=== PATIENT | female | born 1960 | race Caucasian/White ===

== ENCOUNTER 2022-06-19 07:07 | Observation (INO) | payer MEDICAID, SELFPAY ==
[2022-06-19] VITALS (20 sets, daily range): BP systolic 124–168; BP diastolic 60–96; PULSE 90–110; RESP 14–22; TEMP 36.3–37.5; O2SAT 91–98; BMI 32.3
--- NOTE | 2022-06-19 07:11 | DI.RAD.S_ITS ---
PROCEDURE: XR CHEST 1V INDICATIONS: chest pain TECHNIQUE: One view of the chest was acquired. COMPARISON: [facility], CHEST 2 VIEW, 03/07/2012, 11:07. [facility], , CHEST 2 VIEW, 05/17/2011, 19:53. FINDINGS: Surgical changes and devices: None. Lungs and pleura: Mild right and minimal left basal opacities. No pleural effusions. No pneumothorax. The right mid lung suspected nodule is again seen. Mediastinum: Mediastinal contours appear normal. Heart size is normal. Bones and chest wall: No suspicious bony lesions. Overlying soft tissues appear unremarkable. IMPRESSION: Mild basal lung opacities could represent early airspace disease or atelectasis. Consider future imaging surveillance to assess for resolution. A right mid lung nodules again seen from 2011. Dictated by: Curt Centeno M.D. on 06/19/2022 at 7:45 Approved by: Curt Centeno M.D. on 06/19/2022 at 7:47
--- NOTE | 2022-06-19 07:14 | ED_ITS ---
HPI - Chest Pain General Chief Complaint: Chest Pain Stated Complaint: Chest Pain Time Seen by Provider: 06/19/22 07:17 History of Present Illness HPI narrative: Patient brought in by EMS from home. Patient is a smoker. Complains of substernal chest tightness achiness 03/03 at 4:00 a.m. this morning. Radiated to her neck. No limb discomfort no syncope no diaphoresis. Feels short of breath. Blood pressure was elevated by EMS measurement. Patient took 650 of aspirin prior to arrival here. EMS gave 3 doses of sublingual nitroglycerin and brought pain down to out of 10. Blood pressure has improved. No numbness tingling or weakness. No recent illness. No known injury. No unusual stress to the limbs or chest in the past week. No cough cold congestion fever chills. Patient is adopted, unknown family cardiac history other than brother with no heart history. Patient has never had stress test before. Patient denies any history of heart attack strokes or diabetes or high blood pressure. Related Data Home Medications Medication Instructions Recorded Confirmed melatonin 12 mg tablet 12 mg PO BEDTIME 06/19/22 06/19/22 Previous Rx's Medication Instructions Recorded aspirin 81 mg tablet,delayed 81 mg PO DAILY #90 tabs 06/20/22 release atorvastatin 20 mg tablet (Lipitor) 20 mg PO BEDTIME #90 tabs 06/20/22 pantoprazole 40 mg tablet,delayed 40 mg PO DAILY PRN Acid Reflux #30 06/20/22 release tabs Allergies Allergy/AdvReac Type Severity Reaction Status Date / Time ciprofloxacin [From CIPRO] Allergy Severe ANAPHYLAXIS Verified 06/20/22 09:06 Sulfa (Sulfonamide Allergy Severe ANAPHYLAXIS Verified 06/20/22 09:06 Antibiotics) [SULFA (SULFONAMIDE ANTIBIOTICS)] nitrofurantoin Allergy Mild Verified 06/20/22 09:06 [NITROFURANTOIN] Review of Systems Review of Systems Narrative: GENERAL: negative chills, fatigue, malaise, fever, sweats. HEENT: negative sinus pain, ear pain, sore throat RESPIRATORY: Positive dyspnea, negative cough CARDIOVASCULAR: Positive chest pain, negative palpitations GASTROINTESTINAL: negative nausea, vomiting, abdominal pain : negative dysuria, frequency, hematuria MUSCULOSKELETAL: negative muscle or bony pain SKIN: negative rash, skin lesions NEUROLOGIC: negative weakness, numbness ROS Unobtainable: All systems reviewed & are unremarkable except as noted in HPI and below Patient History Family History (Updated 06/19/22 @ 17:30 by Arnoldo Michelle DO) Brother Alcoholism Social History household members: family Smoking Status: Current every day smoker Exam Narrative Exam Narrative: GENERAL: in no distress, not toxic not dyspneic HEAD: Normocephalic. EYES: Pupils equal round No scleral icterus. ENT: Mucous membranes moist. NECK: Trachea midline. CARDIOVASCULAR: Regular rate and rhythm without murmurs RESPIRATORY: Clear to auscultation. Breath sounds equal bilaterally. No wheezes, rales, or rhonchi. GASTROINTESTINAL: Abdomen soft, non-tender EXTREMITIES: No gross deformities. BACK: No flank tenderness. NEURO: AOx4. SKIN: Warm and dry PSYCH: Not anxious, is cooperative Initial Vital Signs Initial Vital Signs: Vital Signs Temperature 98.3 F 06/19/22 07:10 Pulse Rate 110 H 06/19/22 07:10 Respiratory Rate 19 06/19/22 07:10 Blood Pressure 124/81 06/19/22 07:10 Pulse Oximetry 98 06/19/22 07:10 Oxygen Delivery Method 06/19/22 07:10 Scores HEART Score Heart Score history: Moderately Suspicious Heart Score EKG: Non-Specific repolarization disturbance Heart Score Age: 45-64 years old Heart Score risk factors: 1-2 risk factors Heart Score troponin: < or = to normal limit Heart Score Total: 4 Course Course Course Narrative: No new issues during course of stay Decision to Admit Date: 06/19/22 Decision to Admit time: 08:03 Orders Ordered: Discontinued Medications Acetaminophen (Acetaminophen 325 Mg Tablet) 650 mg PO Q6H PRN PRN Reason: Fever/Mild Pain (1-3) Last Admin: 06/19/22 20:12 Dose: 650 mg Documented By: OW Aspirin (Aspirin Ec 81 Mg Tablet) 81 mg PO DAILY [facility] Last Admin: 06/20/22 09:10 Dose: 81 mg Documented By: AKP Atorvastatin Calcium (Atorvastatin 20 Mg Tablet) 20 mg PO BEDTIME [facility] Last Admin: 06/19/22 20:12 Dose: 20 mg Documented By: OW Enoxaparin Sodium (Enoxaparin 40 Mg/0.4 Ml Syringe) 40 mg SUBCUT DAILY [facility] Last Admin: 06/20/22 09:10 Dose: 40 mg Documented By: TYSHAWN Sodium Chloride (Normal Saline 0.9%) 500 mls @ 1,000 mls/hr IV BOLUS ONE Stop: 06/19/22 08:34 Last Infusion: 06/19/22 09:35 Dose: 0 mls/hr Documented By: Admin: 06/19/22 08:54 Dose: 1,000 mls/hr Documented By: MIRTHA Melatonin (Melatonin 3 Mg Tablet) 6 mg PO BEDTIME PRN PRN Reason: Insomnia Melatonin (Melatonin 3 Mg Tablet) 12 mg PO BEDTIME JOSE DE JESUS Melatonin (Melatonin 3 Mg Tablet) 10 mg PO BEDTIME [facility] Last Admin: 06/19/22 20:13 Dose: 10 mg Documented By: INNA Naloxone HCl (Naloxone 0.4 Mg/Ml Vial) 0.2 mg IV Q2MIN PRN PRN Reason: Opiate Reversal Nicotine (Nicotine 21 Mg Patch) 21 mg TOP NOW ONE Stop: 06/19/22 09:25 Last Admin: 06/19/22 09:33 Dose: 21 mg Documented By: CECILY Nitroglycerin (Nitroglycerin Oint 1 Inch/Gm Oint...G.) 0.5 inch TOP NOW ONE Stop: 06/19/22 07:12 Last Admin: 06/19/22 07:23 Dose: 0.5 inch Documented By: CECILY Nitroglycerin (Nitroglycerin 0.4 Mg Sl Tab) 0.4 mg SL [id number] PRN PRN Reason: Chest Pain Pantoprazole Sodium (Pantoprazole Dr 40 Mg Tablet) 40 mg PO 0700,2100 [facility] Last Admin: 06/20/22 06:12 Dose: 40 mg Documented By: Admin: 06/19/22 20:12 Dose: 40 mg Documented By: Admin: 06/19/22 18:10 Dose: 40 mg Documented By: JOSÉ ANTONIO Polyethylene Glycol (Polyethylene Glycol 3350 17 Gm Powd.Pack) 17 gm PO DAILY PRN PRN Reason: Constipation Sennosides (Sennosides 8.6 Mg Tablet) 8.6 mg PO BID PRN PRN Reason: Constipation Reevaluation(s) Reevaluation #1: Updated patient, daughter at bedside now. Awaiting for 2nd troponin. Currently chest pain-free. She does inquire about nicotine patch and coffee. She does agree for admission for observation. Time: 09:24 Consultations Consultation #1: Spoke with Cardiology, Dr. Long. Recommends admission for echocardiogram stress test Time: 09:29 Consultation #2: Spoke with hospitalist, Dr. Michelle, will admit. Time: 10:24 Vital Signs Vital signs: Vital Signs - 8 hr 06/19/22 07:10 06/19/22 07:13 06/19/22 07:30 Temperature 98.3 F Pulse Rate 110 H 109 H Respiratory Rate 19 21 Blood Pressure 124/81 141/64 H Pulse Oximetry 98 94 Oxygen Delivery Method Room Air 06/19/22 07:30 06/19/22 07:45 06/19/22 07:45 Temperature Pulse Rate 101 H 101 H Respiratory Rate 21 22 Blood Pressure 132/68 Pulse Oximetry 96 95 Oxygen Delivery Method 06/19/22 08:00 06/19/22 08:00 06/19/22 08:15 Temperature Pulse Rate 101 H Respiratory Rate 19 Blood Pressure 128/66 126/60 Pulse Oximetry 96 Oxygen Delivery Method 06/19/22 08:15 06/19/22 08:33 06/19/22 08:56 Temperature Pulse Rate 102 H 103 H 105 H Respiratory Rate 14 19 Blood Pressure Pulse Oximetry 96 95 Oxygen Delivery Method 06/19/22 08:56 06/19/22 09:00 06/19/22 09:00 Temperature Pulse Rate 101 H Respiratory Rate 15 Blood Pressure 140/72 140/68 Pulse Oximetry Oxygen Delivery Method 06/19/22 09:15 06/19/22 09:15 06/19/22 09:30 Temperature Pulse Rate 100 H Respiratory Rate 15 Blood Pressure 168/77 H 153/61 H Pulse Oximetry 97 Oxygen Delivery Method 06/19/22 09:30 06/19/22 09:45 06/19/22 09:45 Temperature Pulse Rate 107 H 104 H Respiratory Rate 21 Blood Pressure 156/70 H Pulse Oximetry 97 97 Oxygen Delivery Method 06/19/22 10:00 06/19/22 10:00 06/19/22 10:15 Temperature Pulse Rate 104 H 103 H Respiratory Rate 22 18 Blood Pressure 157/74 H Pulse Oximetry 97 96 Oxygen Delivery Method 06/19/22 10:15 Temperature Pulse Rate Respiratory Rate Blood Pressure 139/62 Pulse Oximetry Oxygen Delivery Method MDM - Chest Pain Differential Diagnosis Differential diagnosis: Likely pneumothorax, stable angina, unstable angina pectoris, atypical chest pain, st elevation myocardial infarction, costochondritis and chest pain Lab Data Result diagrams: 06/20/22 04:26 06/20/22 04:26 Labs: Lab Results 06/19/22 06/19/22 06/19/22 Range/Units 07:15 07:15 07:15 WBC 12.9 H (4.5-11.0) X10^3/uL RBC 5.06 (4.0-5.2) X10^6/uL Hgb 15.6 (12.0-16.0) g/dL Hct 46.7 H (36-46) % MCV 92.3 (80-100) fL MCH 30.9 (26-34) PG MCHC 33.5 (30-36) % RDW 14.2 (11.6-14.8) % Plt Count 213 (150-400) X10^3/uL Neut % (Auto) 73.6 (50-75) % Lymph % (Auto) 18.6 L (25-40) % [place] % (Auto) 4.7 (3-14) % Eos % (Auto) 2.4 (2-4) % Baso % (Auto) 0.7 (0-2) % Neut # (Auto) 9500 H (7381-5768) /uL Lymph # (Auto) 2400 (1101-0756) /uL [place] # (Auto) 600 (0-900) /uL Eos # (Auto) 300 (0-450) /uL Baso # (Auto) 100 (0-100) /uL PT 11.0 (10.1-12.7) SECONDS INR 1.0 (0.9-1.3) APTT 31 (26-36) SECONDS D-Dimer 681 H (<500) ng/ml Sodium 139 (137-145) mmol/L Potassium 4.0 (3.4-5.1) mmol/L Chloride 108 H (98-107) mmol/L Carbon Dioxide 24 (22-32) mmol/L BUN 11 (7-17) mg/dL Creatinine 0.65 (0.52-1.04) mg/dL Estimated GFR > 60 (>60) mL/min BUN/Creatinine Ratio 16.9 (6-22) Glucose 129 H (80-110) mg/dL Hemoglobin A1c (4.0-6.0) % Calcium 9.8 (8.4-10.2) mg/dL Magnesium (1.6-2.3) mg/dL Total Bilirubin 0.4 (0.2-1.3) mg/dL AST 24 (14-36) IU/L ALT 20 (<35) IU/L Alkaline Phosphatase 84 (38-126) U/L Total Creatine Kinase 62 (30-135) U/L CK-MB (CK-2) TNP CK-MB (CK-2) Rel Index TNP Troponin I < 0.012 (0.01-0.034) ng/mL NT-Pro-B Natriuret Pep (<125) pg/mL Total Protein 7.3 (6.3-8.2) g/dL Albumin 4.0 (3.5-5.0) g/dL Globulin 3.3 (1.7-4.1) g/dL Albumin/Globulin Ratio 1.2 (1.0-2.8) Triglycerides (35-150) mg/dL Cholesterol (140-199) mg/dL LDL Cholesterol, Calc (<100) mg/dL HDL Cholesterol (40-60) mg/dL Procalcitonin (<0.5) ng/mL TSH (0.47-4.68) uIU/mL Urine Color Urine Appearance Urine pH (4.5-8.0) Ur Specific Goldsmith (1.000-1.035) Urine Protein (Negative) Urine Glucose (UA) (Negative) g/dL Urine Ketones (NEGATIVE) Urine Occult Blood (Negative) Urine Nitrate (Negative) Urine Bilirubin (NEGATIVE) Urine Urobilinogen (0.2) E.U./dL Ur Leukocyte Esterase (NEGATIVE) Urine RBC (0-5/HPF) Urine WBC (0-5/HPF) Ur Squamous Epith Cells (0-5/HPF) Urine Bacteria (None) Ur Culture Indicated? SARS-CoV-2 (PCR) (Negative) 06/19/22 06/19/22 06/19/22 Range/Units 07:15 07:15 07:15 WBC (4.5-11.0) X10^3/uL RBC (4.0-5.2) X10^6/uL Hgb (12.0-16.0) g/dL Hct (36-46) % MCV (80-100) fL MCH (26-34) PG MCHC (30-36) % RDW (11.6-14.8) % Plt Count (150-400) X10^3/uL Neut % (Auto) (50-75) % Lymph % (Auto) (25-40) % [place] % (Auto) (3-14) % Eos % (Auto) (2-4) % Baso % (Auto) (0-2) % Neut # (Auto) (2584-1953) /uL Lymph # (Auto) (9708-5630) /uL [place] # (Auto) (0-900) /uL Eos # (Auto) (0-450) /uL Baso # (Auto) (0-100) /uL PT (10.1-12.7) SECONDS INR (0.9-1.3) APTT (26-36) SECONDS D-Dimer (<500) ng/ml Sodium (137-145) mmol/L Potassium (3.4-5.1) mmol/L Chloride (98-107) mmol/L Carbon Dioxide (22-32) mmol/L BUN (7-17) mg/dL Creatinine (0.52-1.04) mg/dL Estimated GFR (>60) mL/min BUN/Creatinine Ratio (6-22) Glucose (80-110) mg/dL Hemoglobin A1c 5.8 (4.0-6.0) % Calcium (8.4-10.2) mg/dL Magnesium 2.0 (1.6-2.3) mg/dL Total Bilirubin (0.2-1.3) mg/dL AST (14-36) IU/L ALT (<35) IU/L Alkaline Phosphatase (38-126) U/L Total Creatine Kinase (30-135) U/L CK-MB (CK-2) CK-MB (CK-2) Rel Index Troponin I (0.01-0.034) ng/mL NT-Pro-B Natriuret Pep (<125) pg/mL Total Protein (6.3-8.2) g/dL Albumin (3.5-5.0) g/dL Globulin (1.7-4.1) g/dL Albumin/Globulin Ratio (1.0-2.8) Triglycerides (35-150) mg/dL Cholesterol (140-199) mg/dL LDL Cholesterol, Calc (<100) mg/dL HDL Cholesterol (40-60) mg/dL Procalcitonin (<0.5) ng/mL TSH 2.35 (0.47-4.68) uIU/mL Urine Color Urine Appearance Urine pH (4.5-8.0) Ur Specific Goldsmith (1.000-1.035) Urine Protein (Negative) Urine Glucose (UA) (Negative) g/dL Urine Ketones (NEGATIVE) Urine Occult Blood (Negative) Urine Nitrate (Negative) Urine Bilirubin (NEGATIVE) Urine Urobilinogen (0.2) E.U./dL Ur Leukocyte Esterase (NEGATIVE) Urine RBC (0-5/HPF) Urine WBC (0-5/HPF) Ur Squamous Epith Cells (0-5/HPF) Urine Bacteria (None) Ur Culture Indicated? SARS-CoV-2 (PCR) (Negative) 06/19/22 06/19/22 06/19/22 Range/Units 07:25 08:58 09:30 WBC (4.5-11.0) X10^3/uL RBC (4.0-5.2) X10^6/uL Hgb (12.0-16.0) g/dL Hct (36-46) % MCV (80-100) fL MCH (26-34) PG MCHC (30-36) % RDW (11.6-14.8) % Plt Count (150-400) X10^3/uL Neut % (Auto) (50-75) % Lymph % (Auto) (25-40) % [place] % (Auto) (3-14) % Eos % (Auto) (2-4) % Baso % (Auto) (0-2) % Neut # (Auto) (7310-5928) /uL Lymph # (Auto) (2746-5755) /uL [place] # (Auto) (0-900) /uL Eos # (Auto) (0-450) /uL Baso # (Auto) (0-100) /uL PT (10.1-12.7) SECONDS INR (0.9-1.3) APTT (26-36) SECONDS D-Dimer (<500) ng/ml Sodium (137-145) mmol/L Potassium (3.4-5.1) mmol/L Chloride (98-107) mmol/L Carbon Dioxide (22-32) mmol/L BUN (7-17) mg/dL Creatinine (0.52-1.04) mg/dL Estimated GFR (>60) mL/min BUN/Creatinine Ratio (6-22) Glucose (80-110) mg/dL Hemoglobin A1c (4.0-6.0) % Calcium (8.4-10.2) mg/dL Magnesium (1.6-2.3) mg/dL Total Bilirubin (0.2-1.3) mg/dL AST (14-36) IU/L ALT (<35) IU/L Alkaline Phosphatase (38-126) U/L Total Creatine Kinase 52 (30-135) U/L CK-MB (CK-2) TNP CK-MB (CK-2) Rel Index TNP Troponin I < 0.012 (0.01-0.034) ng/mL NT-Pro-B Natriuret Pep (<125) pg/mL Total Protein (6.3-8.2) g/dL Albumin (3.5-5.0) g/dL Globulin (1.7-4.1) g/dL Albumin/Globulin Ratio (1.0-2.8) Triglycerides (35-150) mg/dL Cholesterol (140-199) mg/dL LDL Cholesterol, Calc (<100) mg/dL HDL Cholesterol (40-60) mg/dL Procalcitonin (<0.5) ng/mL TSH (0.47-4.68) uIU/mL Urine Color Yellow Urine Appearance Clear Urine pH 6.0 (4.5-8.0) Ur Specific Goldsmith <=1.005 (1.000-1.035) Urine Protein Negative (Negative) Urine Glucose (UA) Negative (Negative) g/dL Urine Ketones Negative (NEGATIVE) Urine Occult Blood 1+ H (Negative) Urine Nitrate Positive H (Negative) Urine Bilirubin Negative (NEGATIVE) Urine Urobilinogen 0.2 (0.2) E.U./dL Ur Leukocyte Esterase 1+ H (NEGATIVE) Urine RBC 1-5/hpf (0-5/HPF) Urine WBC 5-10/hpf H (0-5/HPF) Ur Squamous Epith Cells 1-5 /hpf (0-5/HPF) Urine Bacteria Many (>30) H (None) Ur Culture Indicated? Specimen cultured SARS-CoV-2 (PCR) Negative (Negative) 06/19/22 06/19/22 06/19/22 Range/Units 09:30 09:30 09:30 WBC (4.5-11.0) X10^3/uL RBC (4.0-5.2) X10^6/uL Hgb (12.0-16.0) g/dL Hct (36-46) % MCV (80-100) fL MCH (26-34) PG MCHC (30-36) % RDW (11.6-14.8) % Plt Count (150-400) X10^3/uL Neut % (Auto) (50-75) % Lymph % (Auto) (25-40) % [place] % (Auto) (3-14) % Eos % (Auto) (2-4) % Baso % (Auto) (0-2) % Neut # (Auto) (9245-3082) /uL Lymph # (Auto) (9364-5848) /uL [place] # (Auto) (0-900) /uL Eos # (Auto) (0-450) /uL Baso # (Auto) (0-100) /uL PT (10.1-12.7) SECONDS INR (0.9-1.3) APTT (26-36) SECONDS D-Dimer (<500) ng/ml Sodium (137-145) mmol/L Potassium (3.4-5.1) mmol/L Chloride (98-107) mmol/L Carbon Dioxide (22-32) mmol/L BUN (7-17) mg/dL Creatinine (0.52-1.04) mg/dL Estimated GFR (>60) mL/min BUN/Creatinine Ratio (6-22) Glucose (80-110) mg/dL Hemoglobin A1c (4.0-6.0) % Calcium (8.4-10.2) mg/dL Magnesium (1.6-2.3) mg/dL Total Bilirubin (0.2-1.3) mg/dL AST (14-36) IU/L ALT (<35) IU/L Alkaline Phosphatase (38-126) U/L Total Creatine Kinase (30-135) U/L CK-MB (CK-2) CK-MB (CK-2) Rel Index Troponin I (0.01-0.034) ng/mL NT-Pro-B Natriuret Pep 61 (<125) pg/mL Total Protein (6.3-8.2) g/dL Albumin (3.5-5.0) g/dL Globulin (1.7-4.1) g/dL Albumin/Globulin Ratio (1.0-2.8) Triglycerides 162 H (35-150) mg/dL Cholesterol 290 H (140-199) mg/dL LDL Cholesterol, Calc 202 H (<100) mg/dL HDL Cholesterol 56 (40-60) mg/dL Procalcitonin < 0.03 (<0.5) ng/mL TSH (0.47-4.68) uIU/mL Urine Color Urine Appearance Urine pH (4.5-8.0) Ur Specific Goldsmith (1.000-1.035) Urine Protein (Negative) Urine Glucose (UA) (Negative) g/dL Urine Ketones (NEGATIVE) Urine Occult Blood (Negative) Urine Nitrate (Negative) Urine Bilirubin (NEGATIVE) Urine Urobilinogen (0.2) E.U./dL Ur Leukocyte Esterase (NEGATIVE) Urine RBC (0-5/HPF) Urine WBC (0-5/HPF) Ur Squamous Epith Cells (0-5/HPF) Urine Bacteria (None) Ur Culture Indicated? SARS-CoV-2 (PCR) (Negative) Imaging Data Chest x-ray: Radiologist's Impression: [address] [address] XRay Report Signed Patient: Dyan Junior MR#: [id number] : 1960 Acct:[id number] Age/Sex: 61 / F Date of Service: 06/19/22 Loc: ED Accession Number: [id number] ?? Procedure: XR chest 1V Ordering Provider: Chidi Armenta MD PROCEDURE:? XR CHEST 1V ? INDICATIONS:? chest pain ? TECHNIQUE:? One view of the chest was acquired.? ? COMPARISON:? [facility], CHEST 2 VIEW, 03/07/2012, 11:07.? [facility], CHEST 2 VIEW, 05/17/2011, 19:53. ? FINDINGS:? ? Surgical changes and devices:? None.? ? Lungs and pleura:? ? Mild right and minimal left basal opacities.? No pleural effusions.? No pneumothorax. The right mid lung suspected nodule is again seen. ? Mediastinum:? Mediastinal contours appear normal.? Heart size is normal.? ? Bones and chest wall:? No suspicious bony lesions.? Overlying soft tissues appear unremarkable.? ? IMPRESSION:? Mild basal lung opacities could represent early airspace disease or atelectasis. Consider future imaging surveillance to assess for resolution.? A right mid lung nodules again seen from 2012.? Dictated by: Curt Centeno M.D. on 06/19/2022 at 7:45 ? ? Approved by: Curt Centeno M.D. on 06/19/2022 at 7:47 ? CT scan - chest: Radiologist's Impression: [address] [address] [address] Scan Report Signed Patient: Dyan Junior MR#: [id number] : 1960 Acct:[id number] Age/Sex: 61 / F Date of Service: 06/19/22 Loc: ED Accession Number: [id number] ?? Procedure: CT angio chest PE protocol Ordering Provider: Chidi Armenta MD PROCEDURE:? CT ANGIO CHEST PE PROTOCOL ? INDICATIONS:? Chest pain ? TECHNIQUE:? After the administration of intravenous contrast, 2 mm thick sections acquired from the pulmonary apices to the posterior costophrenic angles.? 3-dimensional maximum intensity projection (MIP) coronal and sagittal reformats were then acquired through the thorax.? For radiation dose reduction, the following was used:? automated exposure control, adjustment of mA and/or kV according to patient size.? ? COMPARISON:? [place], [place], PET/CT WHOLE BODY EXTENDED, 05/05/2012, 8:38.? [facility], [place], THORAX WITHOUT CONTRAST, 07/31/2012, 9:47. ? FINDINGS:? Image quality:? Limited by bolus timing. ? Pulmonary arteries:? The bolus of the contrast injection is suboptimal.? The main pulmonary artery measures approximately 150 Hounsfield units.? Pulmonary artery densities are greater than 250 Hounsfield units are considered to be ideal for evaluation of pulmonary embolism. ? However, no large or central pulmonary emboli are seen on these images.? No pulmonary emboli are seen more distally, although sensitivity for detection of such is limited on this study.? ? ? Lungs and pleura:? Within the right lower lobe, there is an ovoid nodule that measures 13 x 10 mm, as on series 5, image 154.? No additional pulmonary nodules are seen.? No focal infiltrates are seen. ? No pleural effusions or pneumothorax.? Central and peripheral airways are patent.? ? Mediastinum:? Heart size is normal, without pericardial effusion.? Mild coronary artery calcification can be seen.? No mediastinal or hilar adenopathy.? Thoracic aorta is normal in caliber and enhancement.? Esophagus is normal in caliber, without hiatal hernia.? ? Bones and chest wall:? No suspicious bony lesions.? Ribs and thoracic spine appear intact throughout.? Age-appropriate bony degenerative changes are seen.? S-shaped scoliotic curvature is seen. ? Thyroid gland demonstrates no significant abnormality.? No axillary or supraclavicular adenopathy.? ? Abdomen:? Colonic diverticulosis is seen, without findings of active diver ticulitis. Visualized upper abdominal solid organs appear normal in the early arterial phase of enhancement.? IMPRESSION:? No large or central pulmonary embolism can be seen, although evaluation for small pulmonary embolism is limited bolus timing. ? Within the right lower lobe, there is a 13 mm ovoid nodule seen, which is only mildly changed compared to 2013 and regarded to be benign.? Incidental note is made of: Diverticulosis, without active diverticulitis ? Dictated by: Luis Lobo M.D. on 06/19/2022 at 8:09 ? ? Approved by: Luis Lobo M.D. on 06/19/2022 at 8:15 ? ECG Data Interpretation: Sinus rhythm rate 99/PVC complexes present. No ST elevation depression MDM Narrative Medical decision making narrative: Appropriate for admission for nonreproducible chest pain. Patient heart score is 4. Patient does smoke. No previous cardiac stress test. Patient and daughter agree for admit. I did review with hospitalist and leaf tinner. Discharge Plan Departure Patient Disposition: Admitted as Observation Clinical Impression: Chest pain Admit Date/Time: 06/19/22 10:31 Admit Provider: Arnoldo Michelle
[2022-06-19] MEDS: NITROGLYCERIN OINT 1 INCH/GM OINT...G. 0.5 INCH TOP (07:23)
[2022-06-19 07:25] LABS: Add Manual Diff / Slide Review NO; Basophils Absolute Auto 100 /uL (0-100); Basophils Percent Auto 0.7 % (0-2); Eosinophils Absolute Auto 300 /uL (0-450); Eosinophils Percent Auto 2.4 % (2-4); Hematocrit 46.7 % (36-46); Hemoglobin 15.6 g/dL (12.0-16.0); Lymphocytes Absolute Auto 2400 /uL (1100-4500); Lymphocytes Percent Auto 18.6 % (25-40); Mean Corpuscular HGB Conc 33.5 % (30-36); Mean Corpuscular Hemoglobin 30.9 PG (26-34); Mean Corpuscular Volume 92.3 fL (80-100); Monocytes Absolute Auto 600 /uL (0-900); Monocytes Percent Auto 4.7 % (3-14); Neutrophils Absolute Auto 9500 /uL (1500-7000); Neutrophils Percent Auto 73.6 % (50-75); Platelet Count 213 X10^3/uL (150-400); Red Blood Cell Count 5.06 X10^6/uL (4.0-5.2); Red Cell Distribution Width 14.2 % (11.6-14.8); White Blood Cell Count 12.9 X10^3/uL (4.5-11.0)
[2022-06-19 07:36] LABS: D Dimer 681 ng/ml (<500)
[2022-06-19 07:37] LABS: PTT Partial Thromboplastin Tim 31 SECONDS (26-36)
[2022-06-19 07:39] LABS: Alanine Aminotransferase 20 IU/L (<35); Albumin Globulin Ratio 1.2 (1.0-2.8); Alkaline Phosphatase 84 U/L (38-126); Aspartate Aminotransferase 24 IU/L (14-36); BUN Creatinine Ratio 16.9 (6-22); Bilirubin Total 0.4 mg/dL (0.2-1.3); Blood Urea Nitrogen 11 mg/dL (7-17); Calcium 9.8 mg/dL (8.4-10.2); Carbon Dioxide 24 mmol/L (22-32); Chloride 108 mmol/L (98-107); Creatine Kinase 62 U/L (30-135); Estimated Glomerular Filt Rate > 60 mL/min (>60); Globulin 3.3 g/dL (1.7-4.1); Glucose 129 mg/dL (80-110); HEMOLYSIS 36 (0-50); Sodium 139 mmol/L (137-145); Total Protein 7.3 g/dL (6.3-8.2)
[2022-06-19 07:50] LABS: Troponin I < 0.012 ng/mL (0.01-0.034)
--- NOTE | 2022-06-19 08:05 | DI.CT.S_ITS ---
PROCEDURE: CT ANGIO CHEST PE PROTOCOL INDICATIONS: Chest pain TECHNIQUE: After the administration of intravenous contrast, 2 mm thick sections acquired from the pulmonary apices to the posterior costophrenic angles. 3-dimensional maximum intensity projection (MIP) coronal and sagittal reformats were then acquired through the thorax. For radiation dose reduction, the following was used: automated exposure control, adjustment of mA and/or kV according to patient size. COMPARISON: [place], [place], PET/CT WHOLE BODY EXTENDED, 05/05/2012, 8:38. [facility], [place], THORAX WITHOUT CONTRAST, 07/31/2012, 9:47. FINDINGS: Image quality: Limited by bolus timing. Pulmonary arteries: The bolus of the contrast injection is suboptimal. The main pulmonary artery measures approximately 150 Hounsfield units. Pulmonary artery densities are greater than 250 Hounsfield units are considered to be ideal for evaluation of pulmonary embolism. However, no large or central pulmonary emboli are seen on these images. No pulmonary emboli are seen more distally, although sensitivity for detection of such is limited on this study. Lungs and pleura: Within the right lower lobe, there is an ovoid nodule that measures 13 x 10 mm, as on series 5, image 154. No additional pulmonary nodules are seen. No focal infiltrates are seen. No pleural effusions or pneumothorax. Central and peripheral airways are patent. Mediastinum: Heart size is normal, without pericardial effusion. Mild coronary artery calcification can be seen. No mediastinal or hilar adenopathy. Thoracic aorta is normal in caliber and enhancement. Esophagus is normal in caliber, without hiatal hernia. Bones and chest wall: No suspicious bony lesions. Ribs and thoracic spine appear intact throughout. Age-appropriate bony degenerative changes are seen. S-shaped scoliotic curvature is seen. Thyroid gland demonstrates no significant abnormality. No axillary or supraclavicular adenopathy. Abdomen: Colonic diverticulosis is seen, without findings of active diverticulitis. Visualized upper abdominal solid organs appear normal in the early arterial phase of enhancement. IMPRESSION: No large or central pulmonary embolism can be seen, although evaluation for small pulmonary embolism is limited bolus timing. Within the right lower lobe, there is a 13 mm ovoid nodule seen, which is only mildly changed compared to 2013 and regarded to be benign. Incidental note is made of: Diverticulosis, without active diverticulitis Dictated by: Luis Lobo M.D. on 06/19/2022 at 8:09 Approved by: Luis Lobo M.D. on 06/19/2022 at 8:15
[2022-06-19 08:08] LABS: COVID19 -Nasal RAPID Negative (Negative)
[2022-06-19] MEDS: SODIUM CHLORIDE 0.9% 500 ML 1000 ML IV (08:54)
[2022-06-19 09:12] LABS: Appearance Urine UA CLEAR; Bilirubin Urine UA NEGATIVE (NEGATIVE); Color Urine UA YELLOW; Glucose Urine UA NEGATIVE (Negative); Ketones Urine UA NEGATIVE (NEGATIVE); Leukocyte Esterase Urine UA 1+ (NEGATIVE); Nitrite Urine UA POSITIVE (Negative); Occult Blood Urine UA 1+ (Negative); Protein Urine UA NEGATIVE (Negative); Specific Gravity Urine UA <=1.005 (1.000-1.035); Urobilinogen Urine UA 0.2 E.U./dL (0.2)
[2022-06-19] MEDS: NICOTINE 21 MG PATCH TOP (09:33)
[2022-06-19 09:35] LABS: Bacteria Urine Many (>30); Culture Indicated Urine Specimen Cultured; RBC Urine 1-5/HPF (0-5/HPF); Squamous Epithelial Cell Urine 1-5 /HPF (0-5/HPF); WBC Urine 5-10/HPF (0-5/HPF)
[2022-06-19 09:57] LABS: Creatine Kinase 52 U/L (30-135)
[2022-06-19 10:10] LABS: Troponin I < 0.012 ng/mL (0.01-0.034)
--- NOTE | 2022-06-19 10:23 | DI.ECHO.S_ITS ---
[place] [facility]---------+ [facility] +---------+ : : [address] : : : : [id number] : : : : Phone: [phone]+ Echocardiogram Report + + :Name: RUTHANN SANTOS Study Date: 06/19/2022 Height: 66 in : :[facility] ReadingLocation: Weight: 200 lb : : Gender: Female BSA: 2.0 m2 : :: 1960 Age: 61 yrs BP: 139/62 mmHg: :Reason For Study: Chest pain : :Ordering Physician: : :ARASH ARELLANO Performed By: Otilio Bhagat : :Referring: ARASH ARELLANO : + + Interpretation Summary 1) Normal left ventricular size, wall motion, and systolic function (EF 65- 70%). 2) Normal right ventricular size and function. 3) No significant valvular abnormalities. 4) No prior Echo available for comparison. Procedure: A two-dimensional transthoracic echocardiogram with color flow and Doppler was performed. The study quality was technically adequate. There is no prior echocardiogram noted for this patient. The patient was in sinus tachycardia with heart rates between 98-106 bpm during the exam. Left Ventricle: The left ventricle is normal in size. Left ventricular wall thickness is at the upper limits of normal. Left ventricular systolic function is normal. The ejection fraction is estimated to be 65-70%. There are no focal wall motion abnormalities. Diastolic function could not be accurately assessed due to tachycardia. Right Ventricle: The right ventricle is normal in size and function. Atria: Both atria are normal in size. The interatrial septum grossly appears intact with no obvious evidence for an atrial septal defect. Mitral Valve: There is mild mitral annular calcification. There is no mitral regurgitation noted. Aortic Valve: The aortic valve is grossly normal. There is no aortic valve stenosis. No aortic regurgitation is present. Tricuspid Valve: The tricuspid valve is normal in structure and function. No tricuspid regurgitation. Pulmonary artery pressures cannot be estimated because of the lack of a measurable TR jet velocity. Pulmonic Valve: The pulmonic valve is normal in structure and function. There is no pulmonic valvular regurgitation. Great Vessels: The aortic root is normal size. The ascending aorta could not be visualized. The IVC is of normal diameter and collapses greater than 50% with a sniff. This suggests a low right atrial pressure of 3 mm Hg. Pericardium/ Pleura There is no pericardial effusion. There is no pleural effusion. MMode/2D Measurements & Calculations LVIDd: 4.2 cm LVOT diam: 2.0 cm LVIDs: 2.8 cm Ao root diam: 3.3 cm FS: 34.3 % IVSd: 1.1 cm LVPWd: 0.99 cm LV lucas. diameter/BSA (cm/m^2): 2.1 LV sys. diameter/BSA (cm/m^2): 1.4 LA A2 area: 14.0 cm2 RA long axis: 4.6 cm LA A4 area: 12.2 cm2 RA area: 13.3 cm2 LA length (vol): 4.4 cm RA vol: 32.9 ml LA vol: 32.6 ml RA : 16.5 ml/m2 LA vol index: 16.3 ml/m2 TAPSE: 1.8 cm Doppler Measurements & Calculations Ao V2 max: 163.1 cm/sec LVOT Max Ld: 120.5 cm/sec Ao V2 mean: 106.1 cm/sec LV V1 max P.8 mmHg Ao max P.6 mmHg LV V1 VTI: 19.2 cm Ao mean P.3 mmHg SISSY(I,D): 2.3 cm2 Ao V2 VTI: 25.4 cm SISSY(V,D): 2.2 cm2 sev ratio: 0.75 SISSY indexed to BSA (cm^2/m^2): 1.1 SV(LVOT): 58.0 ml Reading Physician:01:39 PM
--- NOTE | 2022-06-19 11:15 | PM.HP.1 ---
History of Present Illness History of Present Illness Date Patient Seen: 06/19/22 Time Patient Seen: 17:29 Chief complaint: Chest Pain Narrative: Dyan Junior is a 61yo F with PMH of COPD and tobacco dependence with 30+ pack year smoking history who presents with chest pain. She was awoken from sleep with sharp/dull pain in her sternum radiating to her neck and jaw. No squeezing, pressure, heaviness or tightness. No diaphoresis, clamminess or nausea. Patient lasted for several hours until she received nitro in the ED which helped it some. She denies history of GERD, but did eat alot of pumpkin pie the night before. No FH of cardiac disease, however she is adopted and her one brother is only an alcoholic. She normally doesn't see doctors and hasn't in many years. Has never done a stress test. In the ED patient had normal troponin x2, normal EKG and a HEART score of 4. CTA chest negative for PE and only showed a previous known nodule which was unchanged from prior. Patient History Family & Social History Family History (Updated 06/19/22 @ 17:30 by Arnoldo Michelle DO) Brother Alcoholism Social History: 30+ pack year smoker Safety & Behavioral: Feels Safe in Current Yes Environment Been Physically Hurt or No Threatened By a Person Tobacco & Substance use: Smoking Status Current every day smoker alcohol intake frequency other Substance Use Type does not use Meds Home Medications and Allergies Home Medications Medication Instructions Recorded Confirmed Type melatonin 12 mg tablet 12 mg PO BEDTIME 06/19/22 06/19/22 History Allergies Allergy/AdvReac Type Severity Reaction Status Date / Time ciprofloxacin [From CIPRO] Allergy Severe ANAPHYLAXIS Unverified 11/02/17 12:16 Sulfa (Sulfonamide Allergy Severe ANAPHYLAXIS Unverified 11/02/17 12:16 Antibiotics) [SULFA (SULFONAMIDE ANTIBIOTICS)] nitrofurantoin Allergy Mild Unverified 11/02/17 12:16 [NITROFURANTOIN] Review of Systems Review of Systems Narrative: All other systems reviewed with the patient and are negative unless otherwise stated. Exam Vital Signs (past 8 hours): - 06/19/22 07:10 06/19/22 07:13 06/19/22 07:30 Temperature 98.3 F Pulse Rate 110 H 109 H Respiratory Rate 19 21 Blood Pressure 124/81 141/64 H Pulse Oximetry 98 94 Oxygen Delivery Method Room Air 06/19/22 07:30 06/19/22 07:45 06/19/22 07:45 Temperature Pulse Rate 101 H 101 H Respiratory Rate 21 22 Blood Pressure 132/68 Pulse Oximetry 96 95 Oxygen Delivery Method 06/19/22 08:00 06/19/22 08:00 06/19/22 08:15 Temperature Pulse Rate 101 H Respiratory Rate 19 Blood Pressure 128/66 126/60 Pulse Oximetry 96 Oxygen Delivery Method 06/19/22 08:15 06/19/22 08:33 06/19/22 08:56 Temperature Pulse Rate 102 H 103 H 105 H Respiratory Rate 14 19 Blood Pressure Pulse Oximetry 96 95 Oxygen Delivery Method 06/19/22 08:56 06/19/22 09:00 06/19/22 09:00 Temperature Pulse Rate 101 H Respiratory Rate 15 Blood Pressure 140/72 140/68 Pulse Oximetry Oxygen Delivery Method 06/19/22 09:15 06/19/22 09:15 06/19/22 09:30 Temperature Pulse Rate 100 H Respiratory Rate 15 Blood Pressure 168/77 H 153/61 H Pulse Oximetry 97 Oxygen Delivery Method 06/19/22 09:30 06/19/22 09:45 06/19/22 09:45 Temperature Pulse Rate 107 H 104 H Respiratory Rate 21 Blood Pressure 156/70 H Pulse Oximetry 97 97 Oxygen Delivery Method 06/19/22 10:00 06/19/22 10:00 06/19/22 10:15 Temperature Pulse Rate 104 H 103 H Respiratory Rate 22 18 Blood Pressure 157/74 H Pulse Oximetry 97 96 Oxygen Delivery Method 06/19/22 10:15 06/19/22 10:30 06/19/22 10:30 Temperature Pulse Rate 106 H Respiratory Rate 18 Blood Pressure 139/62 154/79 H Pulse Oximetry 96 Oxygen Delivery Method 06/19/22 10:45 06/19/22 10:45 06/19/22 11:00 Temperature Pulse Rate 103 H Respiratory Rate 19 Blood Pressure 139/72 143/76 H Pulse Oximetry 95 Oxygen Delivery Method 06/19/22 11:00 Temperature Pulse Rate 103 H Respiratory Rate 21 Blood Pressure Pulse Oximetry 96 Oxygen Delivery Method Room Air Oxygen Delivery Method Room Air Narrative Exam Narrative: GEN: no acute distress, poor dentition due to smoking HEENT: moist mucous membranes, PERRL NECK: trachea midline, no JVD CV: regular rate and rhythm, no murmurs PULM: clear bilaterally ABD: soft, nontender, nondistended, no organomegaly EXT: warm and well perfused with no edema NEURO: awake, alert, oriented, no focal deficits Objective Labs Result Diagrams: 06/19/22 07:15 06/19/22 07:15 Labs: Laboratory Results - last 24 hr 06/19/22 06/19/22 06/19/22 07:15 07:15 07:15 WBC 12.9 H RBC 5.06 Hgb 15.6 Hct 46.7 H MCV 92.3 MCH 30.9 MCHC 33.5 RDW 14.2 Plt Count 213 Neut % (Auto) 73.6 Lymph % (Auto) 18.6 L Sullivan % (Auto) 4.7 Eos % (Auto) 2.4 Baso % (Auto) 0.7 Neut # (Auto) 9500 H Lymph # (Auto) 2400 Sullivan # (Auto) 600 Eos # (Auto) 300 Baso # (Auto) 100 PT 11.0 INR 1.0 APTT 31 D-Dimer 681 H Sodium 139 Potassium 4.0 Chloride 108 H Carbon Dioxide 24 BUN 11 Creatinine 0.65 Estimated GFR > 60 BUN/Creatinine Ratio 16.9 Glucose 129 H Calcium 9.8 Total Bilirubin 0.4 AST 24 ALT 20 Alkaline Phosphatase 84 Total Creatine Kinase 62 CK-MB (CK-2) TNP CK-MB (CK-2) Rel Index TNP Troponin I < 0.012 Total Protein 7.3 Albumin 4.0 Globulin 3.3 Albumin/Globulin Ratio 1.2 Urine Color Urine Appearance Urine pH Ur Specific [place] Urine Protein Urine Glucose (UA) Urine Ketones Urine Occult Blood Urine Nitrate Urine Bilirubin Urine Urobilinogen Ur Leukocyte Esterase Urine RBC Urine WBC Ur Squamous Epith Cells Urine Bacteria Ur Culture Indicated? SARS-CoV-2 (PCR) 06/19/22 06/19/22 06/19/22 07:25 08:58 09:30 WBC RBC Hgb Hct MCV MCH MCHC RDW Plt Count Neut % (Auto) Lymph % (Auto) Sullivan % (Auto) Eos % (Auto) Baso % (Auto) Neut # (Auto) Lymph # (Auto) Sullivan # (Auto) Eos # (Auto) Baso # (Auto) PT INR APTT D-Dimer Sodium Potassium Chloride Carbon Dioxide BUN Creatinine Estimated GFR BUN/Creatinine Ratio Glucose Calcium Total Bilirubin AST ALT Alkaline Phosphatase Total Creatine Kinase 52 CK-MB (CK-2) TNP CK-MB (CK-2) Rel Index TNP Troponin I < 0.012 Total Protein Albumin Globulin Albumin/Globulin Ratio Urine Color Yellow Urine Appearance Clear Urine pH 6.0 Ur Specific [place] <=1.005 Urine Protein Negative Urine Glucose (UA) Negative Urine Ketones Negative Urine Occult Blood 1+ H Urine Nitrate Positive H Urine Bilirubin Negative Urine Urobilinogen 0.2 Ur Leukocyte Esterase 1+ H Urine RBC 1-5/hpf Urine WBC 5-10/hpf H Ur Squamous Epith Cells 1-5 /hpf Urine Bacteria Many (>30) H Ur Culture Indicated? Specimen cultured SARS-CoV-2 (PCR) Negative Assessment & Plan Assessment & Plan narrative: # chest pain -high risk with HEART score of 4, however atypical in description -echo normal with EF 65-70% and normal LV with no focal WMA's -start aspirin 81mg daily -nuc med stress test ordered due to COPD and patient doesn't think she can walk much on treadmill -NPO midnight on 06/20, she may have caffeine until then -start PPI in case this pain is GERD related # HLD -no history however LDL highly elevated at 202 -start lipitor 20mg daily # leukocytosis -WBC 12.9 on admission -procal negative -UA with pyuria, however patient denies any urinary symptoms -CXR normal -monitor # tobacco dependence with COPD -smoked 1ppd for 30+ years -does not use inhalers, but gets winded walking up stairs -should get a PCP for pulmonology referral and baseline PFT's -nicotine patch 21mg daily Code status is full code. COVID negative. DVT prophylaxis with Lovenox. Proxy is daughter Rajni. I have reviewed home meds and used all available resources to reconcile the home meds. This patient will be admitted as observation and will require less than 2 midnights of hospital time to treat chest pain rule out. Time Spent With Patient Critical Care time: I spent a total of [] minutes of critical care time on this patient's care today; this time is exclusive of procedural time.
[2022-06-19 12:40] LABS: Hemoglobin A1C% w Est Avg Glu 5.8 % (4.0-6.0)
[2022-06-19 12:49] LABS: NT-proBNP (BNP-Adult 18+) 61 pg/mL (<125)
[2022-06-19 12:57] LABS: Procalcitonin < 0.03 ng/mL (<0.5)
[2022-06-19 13:07] LABS: Cholesterol 290 mg/dL (140-199); HDL Cholesterol 56 mg/dL (40-60); LDL Cholesterol Calculated 202 mg/dL (<100); Triglycerides 162 mg/dL (35-150)
[2022-06-19 13:11] LABS: TSH w/ Reflex to FT4 2.35 uIU/mL (0.47-4.68)
[2022-06-19] MEDS: PANTOPRAZOLE DR 40 MG TABLET PO ×2 (18:10→20:12)
[2022-06-19] MEDS: ATORVASTATIN 20 MG TABLET PO (20:12)
[2022-06-19] MEDS: ACETAMINOPHEN 325 MG TABLET 650 MG PO (20:12)
[2022-06-19] MEDS: MELATONIN 3 MG TABLET 10 MG PO (20:13)
[2022-06-20] VITALS: BP 144/86; PULSE 93; RESP 19; TEMP 36.4; O2SAT 93
--- NOTE | 2022-06-20 03:09 | PC.NURSE ---
Pt is AxOx4, independent and cooperative. VSS, c/o headacha around 8pm so PRN Tylenol given with good effect. Pt slept all night. No problem identified. No chest pain. Tele shows SR with BBB. Pt will have stress test on Tuesday. Continue monitor.
[2022-06-20 04:00] VITALS: BP 128/85; PULSE 89; RESP 19; TEMP 36.1; O2SAT 96
[2022-06-20 04:55] LABS: Add Manual Diff / Slide Review NO; Basophils Absolute Auto 100 /uL (0-100); Basophils Percent Auto 1.1 % (0-2); Eosinophils Absolute Auto 400 /uL (0-450); Eosinophils Percent Auto 4.4 % (2-4); Hematocrit 45.1 % (36-46); Hemoglobin 15.1 g/dL (12.0-16.0); Lymphocytes Absolute Auto 3100 /uL (1100-4500); Lymphocytes Percent Auto 35.9 % (25-40); Mean Corpuscular HGB Conc 33.6 % (30-36); Mean Corpuscular Hemoglobin 30.8 PG (26-34); Mean Corpuscular Volume 91.8 fL (80-100); Monocytes Absolute Auto 700 /uL (0-900); Monocytes Percent Auto 8.4 % (3-14); Neutrophils Absolute Auto 4400 /uL (1500-7000); Neutrophils Percent Auto 50.2 % (50-75); Platelet Count 203 X10^3/uL (150-400); Red Blood Cell Count 4.91 X10^6/uL (4.0-5.2); Red Cell Distribution Width 14.1 % (11.6-14.8); White Blood Cell Count 8.8 X10^3/uL (4.5-11.0)
[2022-06-20 05:11] LABS: BUN Creatinine Ratio 17.7 (6-22); Blood Urea Nitrogen 11 mg/dL (7-17); Calcium 9.8 mg/dL (8.4-10.2); Carbon Dioxide 24 mmol/L (22-32); Chloride 110 mmol/L (98-107); Estimated Glomerular Filt Rate > 60 mL/min (>60); Glucose 102 mg/dL (80-110); HEMOLYSIS < 15 (0-50); Potassium 4.2 mmol/L (3.4-5.1); Sodium 138 mmol/L (137-145)
[2022-06-20 05:22] LABS: Troponin I < 0.012 ng/mL (0.01-0.034)
[2022-06-20 06:00] VITALS: RESP 18
[2022-06-20] MEDS: PANTOPRAZOLE DR 40 MG TABLET PO (06:12)
[2022-06-20 07:53] VITALS: BP 135/67; PULSE 61; RESP 18; TEMP 36.3; O2SAT 95
--- NOTE | 2022-06-20 08:52 | P.PN_ITS ---
Exam Vital Signs (past 8 hours): - 06/20/22 04:00 06/20/22 06:00 06/20/22 07:53 Temperature 97.0 F L 97.3 F L Pulse Rate 89 61 Respiratory Rate 19 18 18 Blood Pressure 128/85 135/67 Pulse Oximetry 96 95 Oxygen Flow Rate 0 Oxygen Delivery Method Room Air Oxygen Flow Rate 0 Narrative Exam Narrative: GEN: no acute distress, poor dentition due to smoking HEENT: moist mucous membranes, PERRL NECK: trachea midline, no JVD CV: regular rate and rhythm, no murmurs PULM: clear bilaterally ABD: soft, nontender, nondistended, no organomegaly EXT: warm and well perfused with no edema NEURO: awake, alert, oriented, no focal deficits Objective Labs Result Diagrams: 06/20/22 04:26 06/20/22 04:26 Labs: Laboratory Results - last 24 hr 06/19/22 06/19/22 06/19/22 07:15 07:15 07:15 WBC RBC Hgb Hct MCV MCH MCHC RDW Plt Count Neut % (Auto) Lymph % (Auto) Lawrence % (Auto) Eos % (Auto) Baso % (Auto) Neut # (Auto) Lymph # (Auto) Lawrence # (Auto) Eos # (Auto) Baso # (Auto) Sodium Potassium Chloride Carbon Dioxide BUN Creatinine Estimated GFR BUN/Creatinine Ratio Glucose Hemoglobin A1c 5.8 Calcium Magnesium 2.0 Total Creatine Kinase CK-MB (CK-2) CK-MB (CK-2) Rel Index Troponin I NT-Pro-B Natriuret Pep Triglycerides Cholesterol LDL Cholesterol, Calc HDL Cholesterol Procalcitonin TSH 2.35 Urine Color Urine Appearance Urine pH Ur Specific [place] Urine Protein Urine Glucose (UA) Urine Ketones Urine Occult Blood Urine Nitrate Urine Bilirubin Urine Urobilinogen Ur Leukocyte Esterase Urine RBC Urine WBC Ur Squamous Epith Cells Urine Bacteria Ur Culture Indicated? 06/19/22 06/19/22 06/19/22 08:58 09:30 09:30 WBC RBC Hgb Hct MCV MCH MCHC RDW Plt Count Neut % (Auto) Lymph % (Auto) [place] % (Auto) Eos % (Auto) Baso % (Auto) Neut # (Auto) Lymph # (Auto) Lawrence # (Auto) Eos # (Auto) Baso # (Auto) Sodium Potassium Chloride Carbon Dioxide BUN Creatinine Estimated GFR BUN/Creatinine Ratio Glucose Hemoglobin A1c Calcium Magnesium Total Creatine Kinase 52 CK-MB (CK-2) TNP CK-MB (CK-2) Rel Index TNP Troponin I < 0.012 NT-Pro-B Natriuret Pep Triglycerides Cholesterol LDL Cholesterol, Calc HDL Cholesterol Procalcitonin < 0.03 TSH Urine Color Yellow Urine Appearance Clear Urine pH 6.0 Ur Specific [place] <=1.005 Urine Protein Negative Urine Glucose (UA) Negative Urine Ketones Negative Urine Occult Blood 1+ H Urine Nitrate Positive H Urine Bilirubin Negative Urine Urobilinogen 0.2 Ur Leukocyte Esterase 1+ H Urine RBC 1-5/hpf Urine WBC 5-10/hpf H Ur Squamous Epith Cells 1-5 /hpf Urine Bacteria Many (>30) H Ur Culture Indicated? Specimen cultured 06/19/22 06/19/22 06/20/22 09:30 09:30 04:26 WBC RBC Hgb Hct MCV MCH MCHC RDW Plt Count Neut % (Auto) Lymph % (Auto) [place] % (Auto) Eos % (Auto) Baso % (Auto) Neut # (Auto) Lymph # (Auto) Lawrence # (Auto) Eos # (Auto) Baso # (Auto) Sodium Potassium Chloride Carbon Dioxide BUN Creatinine Estimated GFR BUN/Creatinine Ratio Glucose Hemoglobin A1c Calcium Magnesium Total Creatine Kinase CK-MB (CK-2) CK-MB (CK-2) Rel Index Troponin I < 0.012 NT-Pro-B Natriuret Pep 61 Triglycerides 162 H Cholesterol 290 H LDL Cholesterol, Calc 202 H HDL Cholesterol 56 Procalcitonin TSH Urine Color Urine Appearance Urine pH Ur Specific [place] Urine Protein Urine Glucose (UA) Urine Ketones Urine Occult Blood Urine Nitrate Urine Bilirubin Urine Urobilinogen Ur Leukocyte Esterase Urine RBC Urine WBC Ur Squamous Epith Cells Urine Bacteria Ur Culture Indicated? 06/20/22 06/20/22 04:26 04:26 WBC 8.8 RBC 4.91 Hgb 15.1 Hct 45.1 MCV 91.8 MCH 30.8 MCHC 33.6 RDW 14.1 Plt Count 203 Neut % (Auto) 50.2 D Lymph % (Auto) 35.9 Lawrence % (Auto) 8.4 Eos % (Auto) 4.4 H Baso % (Auto) 1.1 Neut # (Auto) 4400 Lymph # (Auto) 3100 Lawrence # (Auto) 700 Eos # (Auto) 400 Baso # (Auto) 100 Sodium 138 Potassium 4.2 Chloride 110 H Carbon Dioxide 24 BUN 11 Creatinine 0.62 Estimated GFR > 60 BUN/Creatinine Ratio 17.7 Glucose 102 Hemoglobin A1c Calcium 9.8 Magnesium Total Creatine Kinase CK-MB (CK-2) CK-MB (CK-2) Rel Index Troponin I NT-Pro-B Natriuret Pep Triglycerides Cholesterol LDL Cholesterol, Calc HDL Cholesterol Procalcitonin TSH Urine Color Urine Appearance Urine pH Ur Specific [place] Urine Protein Urine Glucose (UA) Urine Ketones Urine Occult Blood Urine Nitrate Urine Bilirubin Urine Urobilinogen Ur Leukocyte Esterase Urine RBC Urine WBC Ur Squamous Epith Cells Urine Bacteria Ur Culture Indicated? PFSH Family History (Updated 06/19/22 @ 17:30 by Arnoldo Michelle DO) Brother Alcoholism Social History household members: family Smoking Status: Current every day smoker Assessment & Plan Assessment & Plan narrative: # chest pain -high risk with HEART score of 4, however atypical in description -echo normal with EF 65-70% and normal LV with no focal WMA's -start aspirin 81mg daily -nuc med stress test ordered due to COPD and patient doesn't think she can walk much on treadmill -NPO midnight on 06/20, she may have caffeine until then -start PPI in case this pain is GERD related # HLD -no history however LDL highly elevated at 202 -start lipitor 20mg daily # leukocytosis -WBC 12.9 on admission -procal negative -UA with pyuria, however patient denies any urinary symptoms -CXR normal -monitor # tobacco dependence with COPD -smoked 1ppd for 30+ years -does not use inhalers, but gets winded walking up stairs -should get a PCP for pulmonology referral and baseline PFT's -nicotine patch 21mg daily Code status is full code. COVID negative. DVT prophylaxis with Lovenox. Proxy is daughter Rajni. I have reviewed home meds and used all available resources to reconcile the home meds. This patient will be admitted as observation and will require less than 2 midnights of hospital time to treat chest pain rule out. Time Spent With Patient Critical Care time: I spent a total of [] minutes of critical care time on this patient's care today; this time is exclusive of procedural time.
[2022-06-20] MEDS: ENOXAPARIN 40 MG/0.4 ML SYRINGE SUBCUT (09:10)
[2022-06-20] MEDS: ASPIRIN EC 81 MG TABLET PO (09:10)
--- NOTE | 2022-06-20 11:43 | PC.NURSE ---
patient A&O x4, expresses wishes for d/c and to do outpt stress test. Call placed to provider. Patient received D/C orders. Patient teaching done at bedside by student nurse Radha with daughter at bedside. All questions and concerns addressed. Patient aware of new medications, aware to f/u with PCP. VSS, patient left in stable condition, escorted to private vehicle in .
--- NOTE | 2022-06-20 12:51 | PM.DS.1 ---
History of Present Illness History of Present Illness Date Patient Seen: 06/20/22 Time Patient Seen: 11:00 Chief complaint: Chest Pain Narrative: Dyan Junior is a 61yo F with PMH of COPD and tobacco dependence with 30+ pack year smoking history who presents with chest pain. She was awoken from sleep with sharp/dull pain in her sternum radiating to her neck and jaw. No squeezing, pressure, heaviness or tightness. No diaphoresis, clamminess or nausea. Patient lasted for several hours until she received nitro in the ED which helped it some. She denies history of GERD, but did eat alot of pumpkin pie the night before. No FH of cardiac disease, however she is adopted and her one brother is only an alcoholic. She normally doesn't see doctors and hasn't in many years. Has never done a stress test. In the ED patient had normal troponin x2, normal EKG and a HEART score of 4. CTA chest negative for PE and only showed a previous known nodule which was unchanged from prior. Discharge Providers Provider Date of admission: 06/19/22 10:31 Discharge Date: 06/20/22 Primary care physician: *ED Temp* Discharge provider: Arnoldo Michelle DO Summary Hospital Course Discharge Diagnosis: # chest pain -high risk with HEART score of 4, however atypical in description as she reported it as sharp/burning -echo normal with EF 65-70% and normal LV with no focal WMA's -start aspirin 81mg daily, dc on this -nuc med stress test ordered, however patient elected to not wait 2 days until stress can be completed due to weekend and instead get it as outpatient -patient's chest pain improved significantly with oral protonix # HLD -no history however LDL highly elevated at 202 -start lipitor 20mg daily, dc on this # leukocytosis, resolved -WBC 12.9 on admission -procal negative -UA with pyuria, however patient denies any urinary symptoms -CXR normal -WBC 8.8 on discharge # tobacco dependence with COPD -smoked 1ppd for 30+ years -does not use inhalers, but gets winded walking up stairs -should get a PCP for pulmonology referral and baseline PFT's -nicotine patch 21mg daily Hospital Course: Patient admitted for chest pain which awoke her from sleep and radiated up to jaw. She described it as a burning type pain. GERD was suspected and oral protonix started. Patient's chest pain improved immediately and she wanted to defer stress test instead get a stress test as outpatient. Her echo was reassuring. No telemetry arrythmias. She was discharged on daily aspirin due to >10% ASCVD score, 20mg lipitor nightly due to LDL of 202 and protonix 40mg PRN for heartburn. She doesn't have a PCP [facility] and establish care. Time Spent with Patient Time spent: Greater than 30 minutes Exam Vital Signs (past 8 hours): - 06/20/22 06:00 06/20/22 07:53 Temperature 97.3 F L Pulse Rate 61 Respiratory Rate 18 18 Blood Pressure 135/67 Pulse Oximetry 95 Oxygen Flow Rate 0 Oxygen Delivery Method Room Air Oxygen Flow Rate 0 Narrative Exam Narrative: GEN: no acute distress, poor dentition due to smoking HEENT: moist mucous membranes, PERRL NECK: trachea midline, no JVD CV: regular rate and rhythm, no murmurs PULM: clear bilaterally ABD: soft, nontender, nondistended, no organomegaly EXT: warm and well perfused with no edema NEURO: awake, alert, oriented, no focal deficits Objective Labs Result Diagrams: 06/20/22 04:26 06/20/22 04:26 Labs: Laboratory Results - last 24 hr 06/19/22 06/19/22 06/19/22 07:15 09:30 09:30 WBC RBC Hgb Hct MCV MCH MCHC RDW Plt Count Neut % (Auto) Lymph % (Auto) Callaway % (Auto) Eos % (Auto) Baso % (Auto) Neut # (Auto) Lymph # (Auto) [place] # (Auto) Eos # (Auto) Baso # (Auto) Sodium Potassium Chloride Carbon Dioxide BUN Creatinine Estimated GFR BUN/Creatinine Ratio Glucose Calcium Troponin I NT-Pro-B Natriuret Pep Triglycerides 162 H Cholesterol 290 H LDL Cholesterol, Calc 202 H HDL Cholesterol 56 Procalcitonin < 0.03 TSH 2.35 06/19/22 06/20/22 06/20/22 09:30 04:26 04:26 WBC 8.8 RBC 4.91 Hgb 15.1 Hct 45.1 MCV 91.8 MCH 30.8 MCHC 33.6 RDW 14.1 Plt Count 203 Neut % (Auto) 50.2 D Lymph % (Auto) 35.9 Callaway % (Auto) 8.4 Eos % (Auto) 4.4 H Baso % (Auto) 1.1 Neut # (Auto) 4400 Lymph # (Auto) 3100 Callaway # (Auto) 700 Eos # (Auto) 400 Baso # (Auto) 100 Sodium Potassium Chloride Carbon Dioxide BUN Creatinine Estimated GFR BUN/Creatinine Ratio Glucose Calcium Troponin I < 0.012 NT-Pro-B Natriuret Pep 61 Triglycerides Cholesterol LDL Cholesterol, Calc HDL Cholesterol Procalcitonin TSH 06/20/22 04:26 WBC RBC Hgb Hct MCV MCH MCHC RDW Plt Count Neut % (Auto) Lymph % (Auto) Callaway % (Auto) Eos % (Auto) Baso % (Auto) Neut # (Auto) Lymph # (Auto) Callaway # (Auto) Eos # (Auto) Baso # (Auto) Sodium 138 Potassium 4.2 Chloride 110 H Carbon Dioxide 24 BUN 11 Creatinine 0.62 Estimated GFR > 60 BUN/Creatinine Ratio 17.7 Glucose 102 Calcium 9.8 Troponin I NT-Pro-B Natriuret Pep Triglycerides Cholesterol LDL Cholesterol, Calc HDL Cholesterol Procalcitonin TSH PFSH Family History (Updated 06/19/22 @ 17:30 by Arnoldo Michelle DO) Brother Alcoholism Social History household members: family Smoking Status: Current every day smoker Discharge Plan Discharge Plan Patient Disposition: Home Provider Discharge Comment: You were admitted for chest pain which was concerning to be your heart. Your heart ultrasound looked great however, and your cardiac enzymes did not rise which is good. A stress test was recommended, but given your pain improved with protonix and your echo was normal it is reasonable to do this as an outpatient. I've placed you on a cholesterol med since your cholesterol was very high and you smoke. Also a baby aspirin daily to prevent heart disease. I've sent protonix to use as needed if the chest pain returns. If it doesn't go away with the protonix, then you need to come back to the ED as it may be your heart. Please get a new primary care doctor at the [facility] clinic which I have given you the phone number for. Say Dr. Michelle sent you. Discharge orders & Medications Prescriptions: New atorvastatin [Lipitor] 20 mg Tablet 20 mg PO BEDTIME Qty: 90 0RF aspirin 81 mg Tablet,Delayed Release (Dr/Ec) 81 mg PO DAILY Qty: 90 0RF pantoprazole 40 mg Tablet,Delayed Release (Dr/Ec) 40 mg PO DAILY PRN (Reason: Acid Reflux) Qty: 30 0RF Continued melatonin 12 mg Tablet 12 mg PO BEDTIME Follow up/Referrals: *Temp,ED* [Primary Care Provider] - Discharge Data Primary Care Provider: *Temp,ED* Attending Provider: Arnoldo Michelle
--- NOTE | 2022-06-20 13:28 | CM.DANOTE ---
Met with patient who lives in [place] with daughter. She is wanting discharge. No needs, independent at baseline. Discharged home today. April Peterson RN/DCP
== END 2022-06-20 11:10 | disposition home or self-care (01) ==
LOC: ED 09:20 → AC 10:31
PROVIDERS: Admitting Provider Student in an Organized Health Care Education/Training Program; Emergency Provider Emergency Medicine; Referring Provider Emergency Medicine; Visit Provider Student in an Organized Health Care Education/Training Program
DX: R07.9 Chest pain, unspecified (principal); J44.9 Chronic obstructive pulmonary disease, unspecified; E78.5 Hyperlipidemia, unspecified; D72.829 Elevated white blood cell count, unspecified; F17.210 Nicotine dependence, cigarettes, uncomplicated; Z20.822 Contact with and (suspected) exposure to COVID-19
CPT/HCPCS: 36415; 71045; 71275; 80048; 80053; 80061; 81001; 82550; 83036; 83735; 83880; 84145; 84443; 84484; 85025; 85379; 85610; 85730; 87077; 87086; 87186; 87635; 93005; 93306; 96360; 96372; 99284; C9803; G0378; J1650; Q9967

== ENCOUNTER → 2024-04-06 | Outpatient (CLI) | payer OTHER, MEDICAID, SELFPAY ==
[2022-06-19 12:00] VITALS: BMI 32.3
--- NOTE | 2024-04-06 08:38 | DI.CT.S_ITS ---
PROCEDURE: CT ANGIO ABDOMEN PELVIS INDICATIONS: AAA S/P EVAR TECHNIQUE: Non-contrast 3 mm thick sections acquired from the diaphragm to the symphysis. After the administration of intravenous contrast, 2.5 mm thick sections acquired from the diaphragm to the symphysis during the arterial and venous phases. 10 mm maximum intensity projection (MIP) reformats were acquired of the arterial phase images. For radiation dose reduction, the following was used: automated exposure control. COMPARISON: None. FINDINGS: Image Quality: Diagnostic. Abdominal aorta: Bifurcated endograft excludes infrarenal AAA. The excluded AAA sac measures 6.6 cm x 4.8 cm. No evidence of endoleak. The main body and both iliac limbs of the endograft are patent. Mesenteric arteries: Celiac artery is patent. Replaced left hepatic artery arising from the left gastric artery and replaced right hepatic artery arising from the SMA, normal variants. The SMA and associated branches are patent. PHONG is occluded at its origin with distal reconstitution. Renal arteries: Both renal arteries are patent. OTHER: Lower Chest: No significant findings. Liver: No solid mass. Gallbladder: No radiopaque gallstones or wall thickening. Biliary ducts: No biliary dilation. Pancreas: No ductal dilation. Spleen: Size is within normal limits. Adrenal Glands: 1.5 cm hypodense nodule within the right adrenal gland with attenuation characteristics compatible with an adenoma. Left adrenal gland appears normal in morphology. Kidneys and Ureters: No renal calculi. No hydronephrosis. No solid mass. No complex renal cystic lesion which requires follow up. Stomach and Bowel: The small and large bowel appear normal in caliber without evidence of bowel obstruction. Colonic diverticulosis without evidence of diverticulitis. Normal-appearing appendix. Peritoneum: No abnormal intraperitoneal fluid. No free air. Ventral Wall: Diastasis of the rectus abdominus. Abdominal Nodes: No retroperitoneal or mesenteric adenopathy by size criteria. Vessels: Inferior vena cava is normal in size. PELVIS: Pelvic Organs: Unremarkable. Bladder: Unremarkable. Pelvic Nodes: No enlarged lymph nodes. Miscellaneous: No inguinal hernias are seen. Bones: No aggressive osseous abnormality. IMPRESSION: Status post stent graft repair of infrarenal AAA with excluded AAA sec measuring 6.6 cm x 4.8 cm. No evidence of endoleak. Of note, no prior studies are available for comparison. If prior exam is made available for comparison of AAA sac size, an addendum can be issued at that time. Dictated by: Tony Gaines M.D. on 04/25/2024 at 15:42 Approved by: Tony Gaines M.D. on 04/25/2024 at 15:58
[2024-04-06 09:27] LABS: Estimated Glomerular Filt Rate > 60 mL/min (>60)
== END ==
LOC: CT 08:36
PROVIDERS: Radiology Diagnostic Radiology; PCP Nurse Practitioner Family; Referring Provider Physician Assistant Surgical; Visit Provider Physician Assistant Surgical
DX: I71.33 Infrarenal abdominal aortic aneurysm, ruptured (principal); E27.9 Disorder of adrenal gland, unspecified; K57.90 Diverticulosis of intestine, part unspecified, without perforation or abscess without bleeding; M62.08 Separation of muscle (nontraumatic), other site; Z98.890 Other specified postprocedural states
CPT/HCPCS: 36415; 74174; 82565; Q9967

== ENCOUNTER → 2025-03-29 10:06 | Outpatient (CLI) | payer MEDICARE, SELFPAY ==
[2022-06-19 12:00] VITALS: BMI 32.3
--- NOTE | 2025-03-29 10:09 | DI.CT.S_ITS ---
PROCEDURE: CT LUNG LOW DOSE SCREENING INDICATIONS: lung cancer screening TECHNIQUE: Noncontrast 2.0-2.5 mm thick sections acquired from the pulmonary apices to the posterior costophrenic angles. 7 mm thick axial MIP, and 5 mm coronal and sagittal reformats were then acquired. For radiation dose reduction, the following was used: automated exposure control, adjustment of mA and/or kV according to patient size. COMPARISON: Outside Facility, CT, CT CHEST WO/W CON, 10/05/2023, 13:01. FINDINGS: Image quality: Diagnostic. Lower Neck: No enlarged lymph nodes. Thyroid: No thyroid nodules which require sonographic follow up, per consensus guidelines. Axillae: No enlarged lymph nodes. Chest Wall: Unremarkable. Bones: Unremarkable. Lungs and Pleura: No pneumothorax or pleural effusions. No consolidation or new suspicious nodules. Prior outside CT scanning from 10/05/23 is reviewed. That study had identified a linear 7 x 3 mm radiodensity contiguous with the dome of the right hemidiaphragm, a questionable focus of radiodensity at the lingular segment of the left upper lobe adjacent to the left ventricular apex, and a definite nodular radiodensity within the anterior aspect of the superior segment right lower lobe. These correlate with current CT series 3, image 266, image 239, and image 177, respectively. Of interest this larger nodule has not increased in size and contains low-density material consistent with fat content and diagnosis of hamartoma. Its maximal dimension is 1.4 cm. Heart: Heart size is normal. No pericardial effusion. Stable mild coronary calcifications proximally. Thoracic Vessels: The aorta and pulmonary arteries demonstrate normal size. Mediastinum and Sophy: No enlarged lymph nodes. Esophagus: No wall thickening. No hiatal hernia. Upper Abdomen: Visualized upper abdomen solid organs and bowel loops appear normal. IMPRESSION: No suspicious pulmonary nodules. 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 The outside study had raised concern for a questionable abnormality in the lingular segment left upper lobe which is not seen currently, and a thin linear radiodensity contiguous with the right hepatic dome. That also does not appear to represent evidence of malignancy, stable over time. LUNG-RADS 1; continued annual screening, if eligible. Clinically Significant Non-pulmonary Findings: Stable mild coronary calcifications.. Dictated by: Alec Jackson M.D. on 03/29/2025 at 11:34 Approved by: Alec Jackson M.D. on 03/29/2025 at 11:50
--- NOTE | 2025-03-29 10:09 | DI.CT.S_ITS ---
PROCEDURE: CT ANGIO ABDOMEN PELVIS INDICATIONS: Follow up AAA repair TECHNIQUE: Non-contrast 3 mm thick sections acquired from the diaphragm to the symphysis. After the administration of intravenous contrast, 2.5 mm thick sections acquired from the diaphragm to the symphysis during the arterial and venous phases. 10 mm maximum intensity projection (MIP) reformats were acquired of the arterial phase images. For radiation dose reduction, the following was used: automated exposure control. COMPARISON: [facility], CT, CT ANGIO ABDOMEN PELVIS, 04/06/2024, 9:35. FINDINGS: Image Quality: Excellent. Some images are limited by beam hardening artifacts. Abdominal aorta: Bifurcated endograft excludes infrarenal abdominal aortic aneurysm. The excluded aneurysm sac measures approximately 6.3 x 4.1 cm (previously measured 6.6 x 4.8 cm.) No endoleak. Mesenteric arteries: Superior mesenteric artery is patent. Inferior mesenteric artery is again noted to be occluded at its origin with distal reconstitution. Renal arteries: Bilateral renal arteries are patent. OTHER: Lower Chest: Visualized portion of the heart within normal limits without pericardial effusion. No pneumothorax, no pleural effusion, no focal consolidation. New mild nonspecific wall thickening of the stomach, some of which may be artifact from partial nondistention although gastritis or other process could be considered. Scattered diverticula throughout the distal transverse, descending and sigmoid colon without CT evidence of diverticulitis. Moderate degenerative changes lower thoracic, lumbar spine and mild degenerative changes of the hips unchanged. 1.5 cm low-attenuation right adrenal nodule again noted unchanged commonly adenoma. Left adrenal is normal. Mild rectus abdominus diastasis unchanged. Liver: Suspected prominent Juan F's lobe variant unchanged the liver measures up to 18 cm in CC dimension. Otherwise mild hepatomegaly could give this appearance. No CT evidence of focal hepatic lesion. Gallbladder: No radiopaque gallstones or wall thickening. Biliary ducts: No biliary dilation. Pancreas: No ductal dilation. Spleen: Size is within normal limits. Kidneys and Ureters: No hydronephrosis. No solid mass. No complex renal cystic lesion which requires follow up. Small Bowel: Normal caliber, without significant wall thickening. Peritoneum: No abnormal intraperitoneal fluid. No free air. Abdominal Nodes: No retroperitoneal or mesenteric adenopathy by size criteria. Vessels: Inferior vena cava is normal in size. PELVIS: Pelvic Organs: Unremarkable. Bladder: Unremarkable. Pelvic Nodes: No enlarged lymph nodes. Miscellaneous: No inguinal hernia. IMPRESSION: Status post stent graft repair of infrarenal abdominal aortic aneurysm as discussed above without evidence of endoleak. Nonspecific wall thickening of the stomach. 1.5 cm right adrenal nodule unchanged. Chronic findings as above. Dictated by: Ke Walters M.D. on 03/29/2025 at 11:47 Approved by: Ke Walters M.D. on 03/29/2025 at 12:05
--- NOTE | 2025-03-29 10:09 | DI.RAD.S_ITS ---
PROCEDURE: XR DEXA AXIAL SKELETON INDICATIONS: OSTEOPOROSIS SCREENING COMPARISON: None. FINDINGS: Lumbar Spine: Bone mineral density 0.902 g/cm2, T score -1.6. Left Femoral Neck: Bone mineral density 0.513 g/cm2, T score -3.0. Left Hip: Bone mineral density 0.606 g/cm2, T score -2.8. Fracture Risk Calculation (when applicable): 10-year fracture risk of a major osteoporotic fracture 15 percent and of a hip fracture 3.8 percent. (T score greater or equal to -1.0 to: NORMAL) (T score from -1.1 to -2.4: OSTEOPENIA) (T score less than or equal to -2.5: OSTEOPOROSIS) IMPRESSION: Osteoporosis--- recommend repeat DEXA in 2 years or less for reassessment of response to treatment. Follow-up guidelines as follows: Osteoporosis: Consider a repeat DEXA and Vertebral Fracture Assessment (VFA) exam in 2 years or sooner if medically necessary, to reassess this patient's status. Osteopenia: Consider a repeat DEXA in 2-3 years to reassess this patient's status, or if there is a new clinical indication. Normal: Consider a repeat DEXA in 5 years or sooner, or if there is a new clinical indication. All treatment decisions require clinical judgment and consideration of individual patient factors, including patient preferences, comorbidities, previous drug use, risk factors not captured in the FRAX model (e.g., frailty, falls, vitamin D deficiency, increased bone turnover, interval significant decline in bone density ) and possible under- or over-estimation of fracture risk by FRAX. In addition, the NOF Guide recommends that FDA-approved medical therapies be considered in postmenopausal women and men age >= 50 years with a: * Hip or vertebral (clinical or morphometric) fracture * T-score of <=-2.5 at the spine or hip * Ten-year fracture probability by FRAX of >= 3% for hip fracture or >=20% for major osteoporotic fracture. Dictated by: Benjamin Cespedes M.D. on 03/29/2025 at 19:55 Approved by: Benjamin Cespedes M.D. on 03/29/2025 at 19:57
[2025-03-29 10:39] LABS: Estimated Glomerular Filt Rate > 60 mL/min (>60)
== END ==
LOC: RAD 10:08
PROVIDERS: Student in an Organized Health Care Education/Training Program; PCP Registered Nurse; Referring Provider Registered Nurse; Visit Provider Registered Nurse
DX: I71.33 Infrarenal abdominal aortic aneurysm, ruptured (principal); I25.10 Atherosclerotic heart disease of native coronary artery without angina pectoris; E27.9 Disorder of adrenal gland, unspecified; Z12.2 Encounter for screening for malignant neoplasm of respiratory organs; Z87.891 Personal history of nicotine dependence; J44.9 Chronic obstructive pulmonary disease, unspecified; Z13.820 Encounter for screening for osteoporosis; M81.0 Age-related osteoporosis without current pathological fracture; Z78.0 Asymptomatic menopausal state
CPT/HCPCS: 36415; 71271; 74174; 77080; 82565; Q9967